=== PATIENT | female | born 1945 | race Asian ===

== ENCOUNTER 2017-07-15 19:09 | Emergency (ER) | payer OTHER ==
[~2017-07-15] VITALS: Ht 162.6 cm; Wt 59.9 kg
[2017-07-15 19:13] VITALS: BP 146/75; Ht 162.6 cm; Wt 59.9 kg
== END 2017-07-15 21:28 | disposition home or self-care (01) ==
LOC: ED 19:09
DX: S16.1XXA Strain of muscle, fascia and tendon at neck level, initial encounter (principal); R07.89 Other chest pain; I10 Essential (primary) hypertension; V89.2XXA Person injured in unspecified motor-vehicle accident, traffic, initial encounter; Y93.79 Activity, other specified sports and athletics; Y92.89 Other specified places as the place of occurrence of the external cause; Y99.8 Other external cause status
CPT/HCPCS: J1885